=== PATIENT | female | born 1975 | race Caucasian/White ===

== ENCOUNTER → 2022-11-14 16:53 | Outpatient (CLI) | payer OTHER, SELFPAY ==
--- NOTE | ~2022-11-14 | XR_ITS ---
XR thoracic spine 2V 11/14/2022 17:49 Indication: Back pain Procedure: 3 views thoracic spine Comparison: No prior studies for comparison. Findings: There is mild scoliosis. Vertebral body heights are maintained. No paraspinal soft tissue a bnormality. No fracture or traumatic malalignment. Pedicles are intact. Lungs are unremarkable. Visua lized bowel gas pattern is nonobstructive. Impression: 1: Mild scoliosis. Reviewed, dictated and finalized at location A. Impression: 1: Mild scoliosis.
--- NOTE | ~2022-11-14 | XR_ITS ---
XR hip LT 2V w AP pelvis 11/14/2022 17:49 Indication: Left hip pain Procedure: 4 views of the left hip including AP pelvis Comparison: No prior studies for comparison. Findings: No significant joint space narrowing. There is an IUD in the pelvis. Pelvic rings are intac t. Sacral foramen are symmetric. No fracture or traumatic malalignment. Impression: 1: No significant bone or joint abnormality. Reviewed, dictated and finalized at location A. Impression: 1: No significant bone or joint abnormality.
--- NOTE | ~2022-11-14 | XR_ITS ---
XR cervical spine 4-5V 11/14/2022 17:49 Indication: Neck pain Procedure: 5 views cervical spine Comparison: No prior studies for comparison. Findings: There is disc narrowing and endplate hypertrophy C5-6. No prevertebral soft tissue swelling . No acute fracture or traumatic malalignment. Odontoid process is unremarkable. There is mild uncina te hypertrophy at C5-6. Impression: 1: Mild cervical spondylosis. Reviewed, dictated and finalized at location A. Impression: 1: Mild cervical spondylosis.
--- NOTE | ~2022-11-14 | XR_ITS ---
XR lumbar spine 2-3V 11/14/2022 17:49 Indication: Low back pain Procedure: 3 views lumbar spine Comparison: No prior studies for comparison. Findings: Vertebral body heights are maintained. There is mild disc narrowing at all lumbar levels. P edicles intact. No fracture or traumatic malalignment. No evidence for spondylolisthesis. Mild levosc oliosis. Impression: 1: Mild lumbar spondylosis with levoscoliosis. Reviewed, dictated and finalized at location A. Impression: 1: Mild lumbar spondylosis with levoscoliosis.
== END ==
PROVIDERS: Visit Provider Chiropractor
DX: M47.896 Other spondylosis, lumbar region (principal); M47.892 Other spondylosis, cervical region; M41.9 Scoliosis, unspecified; M25.552 Pain in left hip
CPT/HCPCS: 72050; 72070; 72100; 73502